=== PATIENT | female | born 1950 | race Caucasian/White ===

== ENCOUNTER 2025-04-11 09:53 | Day surgery (SDC) | payer MEDICARE, SELFPAY ==
[2025-03-12 10:09] VITALS: BMI 30.6
[2025-03-12 10:44] LABS: Hematocrit 40.4 % (37.0-47.0); Hemoglobin 13.5 g/dL (12.0-16.0); Mean Corp Hgb Conc. 33.4 g/dL (33.0-37.0); Mean Corpuscular Volume 91.0 fL (81.0-99.0); Nucleated Red Blood Cells % 0 %; Platelet Count 195 10^3/uL (130-400); Red Cell Dist. Width 13.0 % (11.5-14.5)
[2025-03-12 10:54] LABS: INR 1.62; PT 19.5 Sec (11.4-14.6)
[2025-03-12 10:59] LABS: ALT (SGPT) 32 U/L (0-35); AST (SGOT) 38 U/L (14-36); Albumin 4.4 g/dl (3.5-5.0); Alkaline Phosphatase 110 U/L (38-126); Blood Urea Nitrogen 10 mg/dl (7-17); Calcium 9.3 mg/dl (8.4-10.2); Carbon Dioxide 28 mmol/L (22-30); Chloride 109 mmol/L (98-107); Estimated Creatinine Clearance 68 ml/min; Glucose 97 mg/dl (70-99); Magnesium 2.2 mg/dl (1.6-2.3); Potassium 4.2 mmol/L (3.5-5.1); Sodium 141 mmol/L (135-145); Total Protein 7.1 g/dl (6.3-8.2); eGFR > 60.00
[2025-04-11] VITALS (10 sets, daily range): BP systolic 117–175; BP diastolic 72–99; BMI 29.1
[2025-04-11 13:45] LABS: ACT-LR - POC 256 Seconds (116-155)
[2025-04-11 14:01] LABS: ACT-LR - POC 313 Seconds (116-155)
--- NOTE | 2025-04-11 14:19 | ITS.CL.ABL ---
[employer] - Ablation
Ablation
Procedure Report:
ELECTROPHYSIOLOGY ABLATION STUDY
DATE:: April 11, 2025�����������������������������REFERRING: Dr. Jared Block
INDICATION: Paroxysmal supraventricular tachycardia in the form of atrial fibrillation.�
HISTORY: See H and P.� Prior pulmonary vein isolation in 2019 with a 20 mm cryoballoon
ANTIARRHYTHMIC DRUG: Multaq
PRE-PROCEDURE JENNIFER: No atrial thrombus
PRESENTING RHYTHM: Sinus bradycardia
'TIME-OUT':��called and confirmed.
SEDATION/ANESTHESIA:��provided via the anesthesia department using general anesthesia (LMA).
INTRAVENOUS/ARTERIAL ACCESS:
Right femoral venous - 8Fr
Left femoral venous - 8 Fr, 6 Fr
Ultrasound guidance for bilateral femoral vein access was utilized by me to obtain access with demonstration of normal anatomy
CHADS-VASC Score:
HAS-Bled Score
PROCEDURE:
1.��A decapolar CS catheter was placed within the CS for mapping and pacing.��This was also used as the reference catheter for the 3-D map.
2. The intracardiac ultrasound catheter was positioned in the RA to identify the FO for targeting of transseptal puncture, assist��in identification of the pulmonary vein ostia, monitoring pre and post ablation pulmonary vein flow velocities,
monitoring for 'bubble' formation during RF application as a sign of thermal injury,��and to monitor for pericardial effusion during mapping and ablation procedure.���Left atrial size, LV ejection fraction, and pulmonary vein flows were monitored
pre and post ablation procedure. The other valves were inspected and found to be free of significant regurgitation or stenosis.
3.��Half of the calculated heparin bolus was administered prior to the first transeptal puncture.��Transseptal puncture was performed to diagnose RA and LA pressure so that safety of LA mapping and ablation could be further assessed, and to access
the left atrium and pulmonary veins for mapping and ablation.��This entailed advancing an 10 [place] steerable sheath with dilator into the superior vena cava and withdrawing both (monitoring intracardiac ultrasound, fluoroscopy and tip pressure)
with the tip oriented toward the atrial septum.��The fossa ovalis was engaged (indicated by sudden displacement of the sheath tip as well as tenting of the fossa seen on intracardiac ultrasound).��Left atrial access required a pass with the
Brockenbrough needle extended.��Left atrial catheter position was confirmed by pressure monitoring (RA mean pressure 8 mm Hg and LA mean presure 14 mm Hg), LA saturation (99%),��as well as fluoroscopy.��The sheath was advanced over the dilator and
positioned in the left atrium.��The remainder of the calculated heparin bolus was administered and heparin was
infused to maintain ACT at 300 -350 seconds throughout the case.
4.��RA pacing was performed via the proximal decapolar poles and LA pacing was performed via the distal decapolr poles.
5. A quadrapolar catheter was first positioned at the His position for His Bundle recording which was tagged via the 3-D Navex sytem, and then passed to the RVA for RV pacing and recording.
6. The 9 mm let us catheter were placed in each of the LIPV, LSPV, RSPV and the RIPV.��
7.��Next, a 3-D map was created using Navex.���A 3-D reconstructed CT image was compared to the 3-D Navex map to assist in anatomic interpretation, mapping and ablation.��The CT image and the NavX image were fused.
8. The pulmonary veins were isolated at baseline. There was electroanatomic voltage at the posterior hal of the right pulmonary veins at the posterior wall�hal juxtaposition. Lesions were given to the right superior and right inferior
pulmonary vein hal's from the posterior aspect through the central hal and onto the septal hal. Extrapulmonary vein lesions were given with a box lesion set with a roofline and floor line and posterior box lesion set on the posterior wall
with some substrate modification inside the box lesion set. This rendered the left atrial posterior wall roof and floor electrically isolated. Entrance next block was confirmed in all 4 pulmonary veins. EP study was performed post pulmonary vein
isolation and posterior wall isolation demonstrating no other nonpulmonary vein triggers for atrial fibrillation noted.
9. Normal sinus node AV node function noted.
TOTAL FLOURO TIME: 10.1 minutes 101 mGy
TOTAL RF DURATION: 0 minutes
REVERSAL OF HEPARIN: 35 mg of protamine, slow IV administration
COMPLICATIONS:
None
Intracardiac US shows no pericardial effusion post ablation.
SUMMARY:��
Complex left atrial mapping and ablation.
Isolation of the right pulmonary vein hal at the posterior aspect where the hal meets the posterior wall. Posterior box lesion set in the left atrium isolating the roof posterior wall and floor of the left atrium.
RECOMMENDATIONS:
1. Ambulate at 6 PM
2. Resume anticoagulation
3.� Discontinue drain at around
4.��Can consider same-day discharge at 6 to 6:30 PM if she meets all discharge criteria
Copy to: Dr. Luke Block
== END 2025-04-11 18:26 | disposition home or self-care (01) ==
LOC: CATH 09:53
PROVIDERS: ATTENDING PHYSICIAN Internal Medicine Cardiovascular Disease; FAMILY PHYSICIAN Family Medicine
DX: I48.0 Paroxysmal atrial fibrillation (principal); E66.9 Obesity, unspecified; E78.5 Hyperlipidemia, unspecified; I10 Essential (primary) hypertension; I47.10 Supraventricular tachycardia, unspecified; Z79.01 Long term (current) use of anticoagulants; Z88.6 Allergy status to analgesic agent; Z98.890 Other specified postprocedural states; Z68.30 Body mass index [BMI] 30.0-30.9, adult
CPT/HCPCS: C1894; C1730; C1733; C1766; C1892; C1759; 36415; 80053; 83735; 85025; 85347; 85610; 86850; 86900; 86901; 93005; 93656; 93657

== ENCOUNTER 2025-04-12 19:54 | Emergency (ER) | payer MEDICARE, SELFPAY ==
[2025-04-12 19:56] VITALS: BP 161/86
--- NOTE | 2025-04-12 20:39 | ED.GENMED ---
History of Present Illness
General
Chief Complaint: Post Operative Problem(s)
Source: patient
Exam Limitations: none
Time Seen by Provider: 04/12/25 20:17
Nursing documentation reviewed up to this point in time: agreed with
History of Present Illness
History of Present Illness:
74-year-old female with history as noted presents to the ER for evaluation of postoperative bleeding. Patient had a cardiac ablation with Dr. Block yesterday and was discharged yesterday evening. She took a dose of her Xarelto last night. She
says that she soaked through her right groin puncture site dressing this morning and so she was seen in the cardiology office in the early afternoon in follow-up. She says the dressing was changed at that point, pressure dressing was replaced.
Over the next few hours she soaked through this pressure dressing and so she replaced it with a new dressing at home. Again soaked through this dressing and so she called the pier runner who referred her to the ER for assessment. No pulsatile
bleeding, just slow steady using. No other acute complaints.
Review of Systems
Review of Systems
All Other Systems: ROS reviewed and negative except as documented in HPI and ROS
Skin: Reports other (Bleeding from groin puncture site)
Phy Exam
Physical Exam
Physical Exam:
General: Well appearing and non-toxic
HEENT: protecting airway
Neck: appears supple
CV: No evidence of cyanosis
Resp: No accessory muscle use
Abd: Non-distended
Extremities: No deformities
Neuro: Alert
Psych: Normal affect
Skin: Patient has puncture site right groin with slow steady oozing, no pulsatile bleeding, no hematoma appreciated, femoral pulse noted well lateral to puncture site with no pulsatile mass
Scores
Heart Failure Risk
Heart Failure Risk Score: Not Applicable
Heart Score for Chest Pain Patients
STEMI patient?: Not applicable
Withdrawal Assessment of Alcohol
Withdrawal Assessment Completed?: Not applicable
Course
Vital Signs
Initial and Last Documented VS:
Initial Vital Signs
Temp Pulse Resp BP Pulse Ox
36.8 C 73 15 161/86 97
04/12/25 19:56 04/12/25 19:56 04/12/25 19:56 04/12/25 19:56 04/12/25 19:56
Last Documented Vital Signs
Temp Pulse Resp BP Pulse Ox
36.8 C 73 15 161/86 97
04/12/25 19:56 04/12/25 19:56 04/12/25 19:56 04/12/25 19:56 04/12/25 20:43
Procedures
Laceration Closure
Right Groin:
Status of Wound: clean
Size of Wound in cm: 0.5
Description of Wound Edges: sharp
Preparation: cleaned with saline
Anesthesia: 1% Lidocaine with epi
Revision/Debridement: routine- no revision
Skin Closure Material: 4-0 nylon
Number of sutures: 1
MDM/Problems Addressed
Differential Diagnosis Includes:
Postoperative bleeding
MDM/Problems Addressed:
74-year-old female presents for evaluation of bleeding from right groin puncture site after cardiac ablation yesterday. She is on Xarelto took a dose last night but was told to hold it tonight due to the bleeding. She has soaked through multiple
dressings today which prompted her to come to the ER this evening. Vitals and exam as above. She has a slow steady ooze. I held direct pressure for 10 minutes but still oozing blood. I then placed a single stitch in the area followed by continue
direct pressure for 10 minutes with good hemostasis. Discussed with cardiology to update. Will observe and if patient has no rebleeding plan for discharge with cardiology follow-up to have stitch removed.
*Pulse Oximetry
SaO2: 97
Oxygen Mode of Delivery: Room air
Patient hypoxic: no (97%)
*Critical Care Note
Total Time (30-74mins, 75-104mins- exclusive of procedures): Not Applicable
Data Reviewed
Source: patient and records
Patient Management
Discussion with other providers: Bee Producer (Discussed with cardiology)
ED Attending Note
-
Portions of this chart may have been created with voice recognition software.� Occasional wrong word or��sound alike� substitutions may have occurred due to the inherent limitations of voice recognition software.
Discharge Plan
Departure
Patient with high blood pressure during this ER visit?: Yes
Discharge Problem:
Post-op bleeding
Instructions: Bleeding After Surgery
Prescriptions:
No Action
multivitamin 1 EACH tablet
2 ea PO DAILY
Xarelto 20 MG tablet
20 mg PO DAILY Qty: 0 0RF
Referrals:
Jared Block MD [Active, Cardiology] - Call in 1-3 days for appt
Juana Foote MD [Family Provider, Family Practice]
Activity Restrictions/Additional Instructions:
You were seen in the emergency room for bleeding from your postoperative site. We placed a stitch to help with the bleeding. This stitch must be removed in 7 to 10 days. You should follow-up with Dr. Block to have the stitch removed. If you
have any issues with follow-up you could always return here to have the stitches removed as well. Keep an eye on the area and if you notice increased swelling you should call your pier runner or return to the emergency room for reassessment.
Thank you for visiting the Emergency Department at [facility].
1. Please schedule a follow up appointment as directed. Call first thing tomorrow morning to make an appointment.
2. If indicated, please take your medications as instructed and indicated on discharge paperwork.
3. If any of your symptoms do not improve, or persist, or become more severe within 6-12 hours, please return to the emergency department for further care.
4. Please return to the emergency department if you develop a headache, neck pain/stiffness, fever greater than 100.4F, chest pain, shortness of breath, persistent nausea, vomiting, slurred speech, difficulty walking, numbness/tingling, weakness,
signs of infection or any other symptoms that are worrisome to you.
Please call [phone] if you have any questions.
Interventions
Interventions:
*Risk Screen - Suicide Last Done: 04/12/25 19:56
*General Assessment Last Done: 04/12/25 19:56
*Neglect/Abuse Screening Last Done: 04/12/25 20:23
*ED- Fall Risk Assessment Last Done: 04/12/25 20:23
*ED COVID-19 Vaccine History Last Done: 04/12/25 19:56
ED-Skin Assessment Last Done: 04/12/25 20:40
Discharge Date and Time
Print Language: [place]
== END 2025-04-12 21:22 | disposition home or self-care (01) ==
LOC: EMR 19:54
PROVIDERS: EMERGENCY PHYSICIAN Emergency Medicine; FAMILY PHYSICIAN Family Medicine
DX: I97.610 Postprocedural hemorrhage of a circulatory system organ or structure following a cardiac catheterization (principal); Y83.8 Other surgical procedures as the cause of abnormal reaction of the patient, or of later complication, without mention of misadventure at the time of the procedure; Z79.01 Long term (current) use of anticoagulants
CPT/HCPCS: 99283